=== PATIENT | female | born 1940 | race Hispanic/Latino ===

== ENCOUNTER 2017-09-25 06:37 | Inpatient (IN) | payer MEDICARE ==
[~2017-09-25] VITALS: Ht 152.4 cm; Wt 61.2 kg
[2017-09-25 06:56] LABS: BASOPHILS % (AUTO) 0.9 % (0.0-5.0); EOSINOPHILS % (AUTO) 2.7 % (0.0-8.0); LYMPHOCYTES % (AUTO) 6.6 % (21.0-51.0); MEAN CORPUSCULAR HEMOGLOBIN 32.1 pg (27.0-33.0); MEAN CORPUSCULAR HGB CONC 34.2 g/dL (32.0-36.0); MEAN CORPUSCULAR VOLUME 93.7 fL (79-99); MONOCYTES % (AUTO) 3.9 % (3.0-13.0); NEUTROPHILS % (AUTO) 85.9 % (40.0-77.0); PLATELET COUNT (AUTO) 219 K/uL (130-400); RED BLOOD CELL COUNT(AUTO) 2.77 MIL/uL (4.00-5.50); RED CELL DISTRIBUTION WIDTH 16.2 % (11.0-15.5); WHITE BLOOD COUNT (AUTO) 9.9 K/uL (4.8-10.8)
[2017-09-25 07:06] LABS: INR 1.09 (0.85-1.15); PARTIAL THROMBOPLASTIN TIME 25.8 SEC (26.3-35.5); PROTHROMBIN TIME 11.4 SEC (9.6-11.6)
[2017-09-25 07:12] LABS: ABG BASE EXCESS 1.2 mmol/L (-2.0-3.0); ABG HCO3 29.1 mmol/L (21.0-28.0); ABG OXYGEN SATURATION 84.3 % (95.0-99.0); ABG PCO2 66 mmHg (32-45)
[2017-09-25 07:32] LABS: APPEARANCE,URINE Cloudy (CLEAR); BILIRUBIN,URINE Negative (NEGATIVE); COLOR,URINE Yellow (YELLOW); GLUCOSE, URINE (UA) >=1000 mg/dL (NEGATIVE); KETONES,URINE Negative (NEGATIVE); LEUKOCYTE ESTERASE ,URINE Moderate (NEGATIVE); NITRATE,URINE Negative (NEGATIVE); OCCULT BLOOD,URINE Moderate (NEGATIVE); PH,URINE 5.5 (5.0-8.0); PROTEIN,URINE 300 (NEGATIVE); UROBILINOGEN,URINE 0.2 mg/dL (0.2-1.0)
[2017-09-25 07:35] LABS: ALBUMIN 2.4 g/dL (3.5-5.0); BILIRUBIN,TOTAL 0.9 mg/dL (0.2-1.0); CREATINE KINASE MB 7.8 ng/mL (0.5-3.6); TOTAL PROTEIN, SERUM 5.8 g/dL (6.0-8.3); TROPONIN I 0.51 ng/mL (0.00-0.06)
[2017-09-25 08:16] LABS: ABG BASE EXCESS 0.8 mmol/L (-2.0-3.0); ABG HCO3 28.9 mmol/L (21.0-28.0); ABG OXYGEN SATURATION 91.8 % (95.0-99.0); ABG PCO2 61 mmHg (32-45)
[2017-09-25 08:19] LABS: BACTERIA,URINE Moderate /HPF (None Seen)
[2017-09-25 08:20] LABS: SQUAMOUS EPITHELIAL CELL,UR 0-2 /LPF (0-2)
[2017-09-25] MEDS ORDERED: ALBUTEROL SULFATE 0.083% 2.5 MG/3 ML INH IH ONE (08:38)
[2017-09-25] MEDS ORDERED: CEFTRIAXONE SODIUM 1 GM ONE (08:48)
[2017-09-25] MEDS ORDERED: SODIUM CHLORIDE 0.9% 50 ML IV ONE (08:49)
[2017-09-25] MEDS ORDERED: DEXTROSE 50%-WATER 50 ML DISP.SYRIN IV ONE (09:05)
[2017-09-25] MEDS ORDERED: SODIUM POLYSTYRENE SULFONATE 15 GM/60 ML ML ONE (09:06)
[2017-09-25] MEDS ORDERED: CALCIUM GLUCONATE 1 GM/10 ML VIAL IV ONE (09:06)
[2017-09-25] MEDS ORDERED: INSULIN HUMULIN R 100 UNIT/ML 3ML ONE (09:07)
[2017-09-25] MEDS ORDERED: FUROSEMIDE 10 MG/ML 4ML VIAL ONE (09:39)
[2017-09-25 14:32] VITALS: BP 141/69
[2017-09-25] MEDS ORDERED: IPRA3AMP4 IH (14:53)
[2017-09-25] MEDS ORDERED: GABA-531 PO (15:00)
[2017-09-25] MEDS ORDERED: AMLO10TA2 PO (15:00)
[2017-09-25] MEDS ORDERED: SIMV40TA5 PO (15:00)
[2017-09-25] MEDS ORDERED: PRED20TA3 PO (15:00)
[2017-09-25] MEDS ORDERED: PIOG45TA17 PO (15:00)
[2017-09-25] MEDS ORDERED: SULF1TAB42 PO (15:00)
[2017-09-25] MEDS ORDERED: ALEN70SO3 PO (15:00)
[2017-09-25 15:59] LABS: CREATINE KINASE MB 16.3 ng/mL (0.5-3.6)
[2017-09-25 16:00] VITALS: BP 137/70
[2017-09-25] MEDS ORDERED: IPRATROPIUM/ALBUTEROL SULFATE 3 ML SOLUTION IH PRN (16:00)
[2017-09-25 16:01] LABS: TROPONIN I 2.68 ng/mL (0.00-0.06)
[2017-09-25] MEDS ORDERED: VANCOMYCIN PROTOCOL PER PHARMACY IV SCH (16:15)
[2017-09-25] MEDS ORDERED: SODIUM CHLORIDE 0.9% 250 ML IV ONE (16:50)
[2017-09-25] MEDS: FUROSEMIDE 10 MG/ML 4ML VIAL IVP SCH (16:54)
[2017-09-25] MEDS: PANTOPRAZOLE 40 MG/VIAL IVP SCH (16:54)
[2017-09-25] MEDS: CEFEPIME HCL 1 GM VIAL IVP SCH (16:54)
[2017-09-25] MEDS ORDERED: SODIUM CHLORIDE 3% FOR INHALATION 4 ML/AMP VIAL.NEB IH ONE (16:58)
[2017-09-25] MEDS ORDERED: ACETAMINOPHEN 325 MG TAB PO PRN (17:00)
[2017-09-25] MEDS ORDERED: VANCOMYCIN 1GM+NS 250ML 250 ML IV ONE (17:00)
[2017-09-25] MEDS: IPRATROPIUM/ALBUTEROL SULFATE 3 ML SOLUTION IH SCH ×2 (17:16→23:48)
[2017-09-25 18:56] VITALS: BP 134/68
[2017-09-25] MEDS ORDERED: LEVOFLOXACIN 750 MG/D5W 150 ML 150 ML IV SCH (20:00)
[2017-09-25] MEDS: MORPHINE SULFATE 2 MG/ML 1ML SYG IVP PRN (20:38)
[2017-09-25 21:53] LABS: CREATINE KINASE MB 18.1 ng/mL (0.5-3.6)
[2017-09-25 21:56] LABS: TROPONIN I 2.83 ng/mL (0.00-0.06)
[2017-09-25] MEDS ORDERED: DEXTROSE 50%-WATER 50 ML DISP.SYRIN IV PRN (22:15)
[2017-09-25] MEDS ORDERED: GLUCAGON 1MG KIT 1 MG ML IM PRN (22:15)
[2017-09-25] MEDS: HYDROCODONE/ACETAMINOPHEN 5/325 MG TAB PO PRN (22:40)
[2017-09-25 23:03] VITALS: BP 133/62
[2017-09-26] MEDS: CEFEPIME HCL 1 GM VIAL IVP SCH ×2 (00:55→10:00)
[2017-09-26] MEDS: FUROSEMIDE 10 MG/ML 4ML VIAL IVP SCH ×2 (00:55→10:00)
[2017-09-26] MEDS: MORPHINE SULFATE 2 MG/ML 1ML SYG IVP PRN ×2 (00:56→06:40)
[2017-09-26 03:20] VITALS: BP 126/61
[2017-09-26 03:45] LABS: BASOPHILS % (AUTO) 0.6 % (0.0-5.0); EOSINOPHILS % (AUTO) 0.7 % (0.0-8.0); HEMATOCRIT 25.1 % (36-48); LYMPHOCYTES % (AUTO) 2.1 % (21.0-51.0); MEAN CORPUSCULAR HEMOGLOBIN 31.1 pg (27.0-33.0); MEAN CORPUSCULAR HGB CONC 33.3 g/dL (32.0-36.0); MEAN CORPUSCULAR VOLUME 93.4 fL (79-99); MONOCYTES % (AUTO) 4.1 % (3.0-13.0); NEUTROPHILS % (AUTO) 92.5 % (40.0-77.0); PLATELET COUNT (AUTO) 154 K/uL (130-400); RED BLOOD CELL COUNT(AUTO) 2.69 MIL/uL (4.00-5.50); RED CELL DISTRIBUTION WIDTH 15.9 % (11.0-15.5); WHITE BLOOD COUNT (AUTO) 9.8 K/uL (4.8-10.8)
[2017-09-26 03:59] LABS: ALBUMIN 2.2 g/dL (3.5-5.0); BILIRUBIN,TOTAL 0.7 mg/dL (0.2-1.0); POTASSIUM 4.6 mmol/L (3.5-5.1); TOTAL PROTEIN, SERUM 5.5 g/dL (6.0-8.3)
[2017-09-26 04:00] LABS: ABG BASE EXCESS 0.8 mmol/L (-2.0-3.0); ABG HCO3 27.6 mmol/L (21.0-28.0); ABG OXYGEN SATURATION 97.8 % (95.0-99.0); ABG PCO2 53 mmHg (32-45)
[2017-09-26] MEDS: PANTOPRAZOLE 40 MG/VIAL IVP SCH (05:13)
[2017-09-26] MEDS ORDERED: VANCOMYCIN 500MG+NS 100ML 100 ML IV SCH (06:00)
[2017-09-26] MEDS ORDERED: SODIUM CHLORIDE 3% FOR INHALATION 4 ML/AMP VIAL.NEB IH ONE (06:12)
[2017-09-26] MEDS: IPRATROPIUM/ALBUTEROL SULFATE 3 ML SOLUTION IH SCH ×2 (06:20→10:39)
[2017-09-26] MEDS: INSULIN HUMULIN R 100 UNIT/ML 3ML SQ SCH ×3 (06:55→12:00)
[2017-09-26 07:30] VITALS: BP 151/70
[2017-09-26] MEDS: HYDROCODONE/ACETAMINOPHEN 5/325 MG TAB PO PRN (08:50)
== END 2017-09-26 11:59 | disposition hospice, inpatient (51) | DRG 193 ==
LOC: EDH 06:41 → EDHIP 12:00 → 2AH 13:50
PROVIDERS: ADMIT Family Medicine; ATTEND Family Medicine
DX: J18.1 Lobar pneumonia, unspecified organism (principal); J96.92 Respiratory failure, unspecified with hypercapnia; I21.4 Non-ST elevation (NSTEMI) myocardial infarction; J96.91 Respiratory failure, unspecified with hypoxia; E87.70 Fluid overload, unspecified; E87.5 Hyperkalemia; D63.8 Anemia in other chronic diseases classified elsewhere; E11.9 Type 2 diabetes mellitus without complications; J81.1 Chronic pulmonary edema; Z66 Do not resuscitate; N19 Unspecified kidney failure; E78.5 Hyperlipidemia, unspecified; I10 Essential (primary) hypertension; I25.10 Atherosclerotic heart disease of native coronary artery without angina pectoris
CPT/HCPCS: 36415; 36600; 71045; 80053; 81001; 82270; 82330; 82435; 82550; 82553; 82803; 82947; 82948; 83605; 83874; 83880; 84132; 84295; 84484; 85018; 85025; 85610; 85730; 87040; 87088; 87186; 93005; 94640; 94660; 94664; A4218; C9113; J0610; J0692; J0696; J1815; J1940; J1956; J3370; J7030; J7070

== ENCOUNTER 2017-09-26 12:00 | Inpatient (IN) | payer OTHER ==
[~2017-09-26 12:00] MED LIST: ALEN70SO3 PO; AMLO10TA2 PO; GABA-531 PO; IPRA3AMP4 IH; PIOG45TA17 PO; PRED20TA3 PO; SIMV40TA5 PO; SULF1TAB42 PO
[2017-09-26] MEDS ORDERED: MORPHINE SULFATE 20MG/ML ORAL 0.25 ML SL PRN ×5 (14:45→17:15)
[2017-09-26] MEDS: MORPHINE SULFATE 20MG/ML ORAL 0.25 ML SL PRN ×2 (16:15→16:51)
[2017-09-26 16:24] VITALS: BP 144/70
[2017-09-26] MEDS: LORAZEPAM 2 MG/ML 1 ML VIAL IVP PRN ×2 (17:05→21:15)
[2017-09-26] MEDS ORDERED: ACETAMINOPHEN 650 MG SUPPOSITORY RC PRN (17:15)
[2017-09-26] MEDS ORDERED: BISACODYL 10 MG SUPP.RECT RC PRN (17:15)
[2017-09-26] MEDS ORDERED: ONDANSETRON HCL 4 MG/2 ML VIAL IVP PRN (17:15)
[2017-09-26] MEDS ORDERED: GLYCOPYRROLATE 1 MG/5 ML SYRINGE IV SCH (17:15)
[2017-09-26] MEDS ORDERED: HYDROMORPHONE HCL 0.5 MG/0.5 ML ML IVP PRN ×3 (17:15)
== END 2017-09-26 22:52 | disposition expired | DRG 193 ==
LOC: 2AH 12:00
PROVIDERS: ADMIT Family Medicine; ATTEND Family Medicine
DX: J18.9 Pneumonia, unspecified organism (principal); J96.90 Respiratory failure, unspecified, unspecified whether with hypoxia or hypercapnia; N18.6 End stage renal disease; J81.1 Chronic pulmonary edema; E11.8 Type 2 diabetes mellitus with unspecified complications; D63.8 Anemia in other chronic diseases classified elsewhere; E87.70 Fluid overload, unspecified; Z66 Do not resuscitate; Z28.21 Immunization not carried out because of patient refusal; I10 Essential (primary) hypertension; I25.10 Atherosclerotic heart disease of native coronary artery without angina pectoris
CPT/HCPCS: J1170; J2060; J3490